=== PATIENT | male | born 2000 | race Caucasian/White ===

== ENCOUNTER 2020-03-25 12:05 | Outpatient (REF) | payer OTHER, SELFPAY | END 2020-03-25 12:06 | disposition home or self-care (01) | LOC: HO.LAB 12:05 | PROVIDERS: Visit Provider Internal Medicine | DX: Z20.828 Contact with and (suspected) exposure to other viral communicable diseases (principal) | CPT/HCPCS: C9803; U0003 ==

== ENCOUNTER 2023-04-28 10:18 | Outpatient (AMB) | payer BC, SELFPAY ==
--- NOTE | 2023-04-28 10:58 | AM.OFFWIN_ITS ---
Intake Vital Signs 04/28/23 11:00 Height 5 ft 11 in Weight 222 lb BMI 31.0 BP 118/70 Blood Pressure Location Rt brachial Position Sitting Pulse 73 Pulse Source Pulse Oximeter Temp 97.9 F Temp Source Temporal Artery Scan Pulse Oximetry (%) 98 Intake Visit Reasons: [employer], back pain ([phone]) Intake Note: pt is here for c.o back pain and right side pain after working out over the weekend Patient Tobacco Use Status: Never used Tobacco Allergies Seafood Allergy (Unknown, Uncoded 04/28/23 11:01) UNKNOWN Do you need a note to return to daycare/school/sports/work: Yes HPI HPI Comments History of Present Illness Details This is a 23-year-old male with no stated past medical history presenting for evaluation of back pain that started on Wednesday after working out at the gym on Wednesday afternoon. Patient states he was performing a leg workout which included squats on Wednesday. He felt a mild soreness Wednesday night but woke up on Wednesday with an aching sensation in his mid back that is worse on the right side. The pain does not radiate. Patient has not taken any medication for treatment of his symptoms. Patient also denies any urinary complaints including urinary frequency, dysuria or hematuria. [facility] Social History Patient Tobacco Use Status: Never used Tobacco Review of Systems Const All systems reviewed & are unremarkable except as noted in HPI and below Reports as per HPI GI Reports no additional complaints Reports no additional complaints, Denies dysuria, Denies urinary frequency and Denies urinary urgency Musc Details: back pain, stiffness Skin/Breast Reports system reviewed and no additional complaints, except as documented Physical Exam Vital Signs: Last Vital Signs Temp 97.9 F 04/28/23 11:00 Pulse 73 04/28/23 11:00 BP 118/70 04/28/23 11:00 Pulse Ox 98 04/28/23 11:00 BMI result Body Mass Index 31.0 Const General: cooperative, healthy appearing, comfortable and no acute distress Nutritional Appearance: average body habitus Orientation/consciousness: patient oriented x3 Limitations: no limitations Neck Neck: Yes full ROM General: Yes no CVA tenderness Back/Spine/Pelvis Back: no CVA tenderness Cervical Spine: normal cervical lordosis Thoracic/Lumbar Spine: thoracic and lumbar spine normal to inspection, thoraco- lumbar ROM normal, straight leg raise negative bilaterally, No bend over test abnormal, paraspinal muscle tenderness (thoracic; no lumbar paraspinous or sciatic tenderness bilaterally) bilaterally and No straight leg raise positive Sacroiliac joints: bilaterally nontender Sacrum: no ecchymosis, no erythema and no swelling Coccyx: no swelling and no tenderness Skin General skin exam: no rashes or lesions noted Neuro General: patient oriented x3 Psych Appearance: grossly normal Mental Status: mental status grossly normal Insight: Good insight present (Psych) Judgement: Good judgement present (Psych) Assessment & Plan Assessment & Plan (1) Strain of thoracic back region: Comment: Patient is seen and evaluated. He states they will not take any prescription medications however is willing to take Aleve [id number]. Code(s): S29.012A - Strain of muscle and tendon of back wall of thorax, initial encounter Plan: Aleve OTC twice daily for 7-10 days; patient to return for any worsening or radiating symptoms. Coding Level of Care Code New Pt Level 3 (54753) Diagnoses Strain of thoracic back region S29.012A Time Spent (min) 25
[2023-04-28 11:00] VITALS: BP 118/70; PULSE 73; TEMP 36.6; O2SAT 98; BMI 31.0
== END 2023-04-28 11:27 | disposition home or self-care (01) ==
PROVIDERS: Visit Provider Physician Assistant
DX: S29.012A Strain of muscle and tendon of back wall of thorax, initial encounter (principal)
CPT/HCPCS: 99203

== ENCOUNTER 2023-10-05 08:11 | Outpatient (AMB) | payer BC, SELFPAY ==
[2023-10-05 08:27] VITALS: BP 150/92; PULSE 78; TEMP 36.6; O2SAT 98
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
== END 2023-10-05 09:40 | disposition home or self-care (01) ==
PROVIDERS: Visit Provider Physician Assistant Medical
DX: M25.562 Pain in left knee (principal); M25.561 Pain in right knee; M23.8X1 Other internal derangements of right knee; S83.401A Sprain of unspecified collateral ligament of right knee, initial encounter
CPT/HCPCS: 99213

== ENCOUNTER 2023-10-05 08:49 | Outpatient (REF) | payer BC, SELFPAY ==
--- NOTE | ~2023-10-05 | XR_ITS ---
EXAMINATION: XR KNEE, RIGHT CLINICAL INFORMATION: Right knee pain COMPARISON: 03/23/2016 TECHNIQUE: Four views of the right knee. FINDINGS: Suprapatellar effusion but no fracture or dislocation. Mild medial knee joint narrowing. Alignment is normal. XR/XR knee RT 4V IMPRESSION: Suprapatellar effusion. No acute bony pathology right knee.
== END 2023-10-05 08:50 | disposition home or self-care (01) ==
LOC: HO.HMGCX 08:49
PROVIDERS: Visit Provider Physician Assistant Medical
DX: M25.561 Pain in right knee (principal)
CPT/HCPCS: 73564

== ENCOUNTER 2023-10-20 07:42 | Outpatient (AMB) | payer BC, SELFPAY ==
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
== END 2023-10-20 08:11 | disposition home or self-care (01) ==
PROVIDERS: Visit Provider Orthopaedic Surgery
DX: M25.561 Pain in right knee (principal)
CPT/HCPCS: 99203

== ENCOUNTER → 2023-10-20 07:42 | Outpatient (BNVA) | payer BC, SELFPAY | PROVIDERS: Visit Provider Orthopaedic Surgery ==

== ENCOUNTER 2023-11-15 13:36 | Outpatient (AMB) | payer BC, SELFPAY ==
--- NOTE | 2023-11-15 13:45 | MHC.OFFVIS ---
Vital Signs 11/15/23 13:48 Height 5 ft 11 in Weight 222 lb BMI 31.0 Intake Visit Reasons: OV- RT knee MRI review Intake Note: Mike is a 23 yo male who presents today for right knee MRI review. The patient states that his knee pain has improved somewhat since his last visit. He has been wearing a knee brace which gives him mild relief. He takes ibuprofen as needed. The patient states that at times he feels like ?something is loose in my knee?. Allergies Seafood Allergy (Unknown, Uncoded 11/15/23 13:49) UNKNOWN Medication List - Last Reconciled 11/16/23 by Gibson Butcher MD ibuprofen 600 mg PO Q6-8H PRN PFSH Social History Patient Tobacco Use Status: Never used Tobacco Physical Exam Vital Signs: BMI result Body Mass Index 31.0 Const Other: Well-nourished well-developed very friendly male awake alert and oriented x3 in no acute distress Extrem Other: Right knee examination shows a minimal effusion, tenderness over his quadriceps tendon, no tenderness over his patellar tendon, mild discomfort with range of motion, no instability Results Reviewed Results Reviewed: MRI of the patient's 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 Eastman presents with right knee pain most likely due to quadriceps tendinitis as well as possible symptoms from a lateral discoid meniscus. I discussed with the patient the treatment options. Most of the patient's symptoms are likely due to the quadriceps tendinopathy in should resolve over time. I am not sure if his discoid meniscus could be causing him symptoms at this time. Thus, I will have him evaluated by my partner, Dr. Hill, for further evaluation. He will follow-up as instructed. He will continue with activity modifications in the meantime. I spent 21 minutes in reviewing the patient's records and imaging studies, seeing the patient and documenting in the medical record. Coding Level of Care Code Est Pt Level 3 (21512) Diagnoses Right knee pain M25.561
[2023-11-15 13:48] VITALS: BMI 31.0
== END 2023-11-15 14:11 | disposition home or self-care (01) ==
PROVIDERS: Visit Provider Orthopaedic Surgery
DX: M25.561 Pain in right knee (principal)
CPT/HCPCS: 99213

== ENCOUNTER → 2023-11-15 13:36 | Outpatient (BNVA) | payer BC, SELFPAY | PROVIDERS: Visit Provider Orthopaedic Surgery ==

== ENCOUNTER 2023-12-06 09:11 | Outpatient (AMB) | payer BC, SELFPAY ==
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
[2023-12-06 09:14] VITALS: BMI 31.0
== END 2023-12-06 09:28 | disposition home or self-care (01) ==
PROVIDERS: Visit Provider Orthopaedic Surgery
DX: M25.561 Pain in right knee (principal)
CPT/HCPCS: 99212

== ENCOUNTER → 2023-12-06 09:11 | Outpatient (BNVA) | payer BC, SELFPAY | PROVIDERS: Visit Provider Orthopaedic Surgery ==